=== PATIENT | female | born 1985 | race Two or more races ===

== ENCOUNTER 2016-06-27 22:00 | Emergency (ER) | payer OTHER ==
[~2016-06-27] VITALS: Ht 160 cm; Wt 67.6 kg
--- NOTE | 2016-06-27 22:05 | Emergency Room Report ---
History of Present Illness General Chief Complaint: Alcohol Intoxication Source: EMS Present Illness HPI Is a 30-year-old female with unknown past medical history. She was brought in by EMS for alcohol intoxication and vomiting. She was at a nearby bar and was very intoxicated. Unable to stand. She was held up by bystanders. She has several episode vomiting. 911 was called. Patient was too intoxicated to give her history here. Allergies: Coded Allergies: No Known Allergies (Unverified , 06/27/16) Patient History Past Medical History: see triage record, old chart reviewed, unable to obtain Past Surgical History: unable to obtain Pertinent Family History: unable to obtain Social History: Reports: alcohol use Now: No Immunizations: other Reviewed Nursing Documentation: PMH: Agreed, PSxH: Agreed Nursing Documentation-PMH Past Medical History: No Stated History Review of Systems All Other Systems: limited - Secondary to intoxication Physical Exam Vital Signs Date Time Temp Pulse Resp B/P Pulse Ox O2 Delivery O2 Flow Rate FiO2 06/27/16 21:58 90 16 110/70 99 Room Air vitals normal Sp02 EP Interpretation: reviewed, normal General Appearance: well appearing, no apparent distress, Stupor - Very intoxicated Head: normocephalic, atraumatic Eyes: bilateral eye EOMI, bilateral eye PERRL ENT: normal pharynx Neck: full range of motion, supple, no meningismus Respiratory: chest non-tender, lungs clear, normal breath sounds Cardiovascular #1: regular rate, rhythm, no murmur Gastrointestinal: normal bowel sounds, non tender, no mass, no organomegaly, no bruit, non-distended Musculoskeletal: back normal, normal range of motion Neurologic: other - Withdraw to painful stimuli in all 4 extremities Psychiatric: mood/affect normal Skin: warm/dry Medical Decision Making Diagnostic Impression: Primary Impression: Acute alcoholic intoxication Qualified Codes: F10.120 - Alcohol abuse with intoxication, uncomplicated ER Course Patient present with alcohol intoxication. She's now awake and able to walk the bathroom with minimal assistance. We will contact her mom who in turn contacted sister. Her sister and [id number] are here and will take patient home. Is no trauma. Patient denies any other medical problem. Denies any drug use. Last Vital Signs Date Time Temp Pulse Resp B/P Pulse Ox O2 Delivery O2 Flow Rate FiO2 06/27/16 21:58 90 16 110/70 99 Room Air Status: improved Disposition: HOME, SELF-CARE Condition: Stable Patient Instructions: Alcohol Intoxication, [id number] Additional Instructions: Followup your Dr. in 2-3 days. Return if symptom worsen. Abstain from drinking to excess. QUYEN APODACA M.D. Jun 27, 2016 22:05
[2016-06-27 23:55] VITALS: BP 108/68
[2016-06-28 01:30] VITALS: BP 124/67
[2016-06-28 01:45] VITALS: BP 124/67
== END 2016-06-28 01:45 | disposition home or self-care (01) ==
LOC: EDBD 22:00 → EMR 23:30
DX: F10.129 Alcohol abuse with intoxication, unspecified (principal)
CPT/HCPCS: 36415; 96360; 96361; 99284; G0480; 80329